=== PATIENT | female | born 1975 ===

== ENCOUNTER 2018-09-21 10:10 | Outpatient (CLI) | payer OTHER | END 2018-09-21 13:27 | disposition home or self-care (01) | LOC: SONOGRAMA 10:10 | DX: E04.8 Other specified nontoxic goiter (principal) ==

== ENCOUNTER 2019-10-04 10:13 | Outpatient (CLI) | payer OTHER | END 2019-10-04 10:28 | disposition home or self-care (01) | LOC: SONOGRAMA 10:13 | PROVIDERS: ATTEND Pathology Anatomic Pathology & Clinical Pathology | DX: E04.2 Nontoxic multinodular goiter (principal) ==